=== PATIENT | female | born 1995 | race Caucasian/White ===

== ENCOUNTER 2020-02-15 02:54 | Observation (INO) ==
[2020-02-15] MEDS ORDERED: SODIUM CHLORIDE 0.9% 1000ML 1,000 ML IV ONE (03:12)
[2020-02-15] MEDS ORDERED: ACETAMINOPHEN 1,000 MG/100 ML VIAL IV STA (03:12)
[2020-02-15] MEDS ORDERED: ONDANSETRON INJ 2 MG/ML 2 ML VIAL IV STA (03:14)
--- NOTE | 2020-02-15 03:17 | Emergency Department Note ---
History of Present Illness General Chief complaint: Headache Stated complaint: nausea/vomiting/headache/altered mental status Time Seen by Provider: 02/15/20 03:12 Source: EMS Mode of arrival: EMS Limitations: altered mental status History of Present Illness Provider complaint: Altered mental status, headache, possible migraine Onset (ago): unknown This is a 24-year-old female brought him by EMS for altered mental status, nausea and vomiting, and possible migraine. EMS reported to ER staff that boyfriend awoke to patient screaming intermittently, and could not get her to calm down or answer questions. Boyfriend called the patient's mom who states that she gets migraine headaches, and 1-2 times a year when she gets a bad migraine she will have similar symptoms. Boyfriend became concerned and called EMS. Patient here is intermittently yelling, would not cooperate to perform an exam and will not answer any questions. EMS reported boyfriend is in route to the emergency room as well, however he is not yet present. Pt seen during a time of high acuity and national emergency pandemic while wearing PPE. Home Medications Home Medications Medication Instructions Recorded Confirmed Type norgestimate-ethinyl estradiol 1 tab PO DAILY 02/15/20 02/15/20 History [Sioux-[place]] sertraline 25 mg PO DAILY 02/15/20 02/15/20 History Allergies Allergy/AdvReac Type Severity Reaction Status Date / Time No Known Allergies Allergy Unverified 02/15/20 03:19 Past Med/Surg History Medical History (Updated 02/16/20 @ 04:44 by Marcella Durham DO) Atypical migraine Depression Seizure disorder Family History (Updated 02/15/20 @ 23:19 by Bruno Miner DO) Other Family history non-contributory Social History Smoking Status: Current every day smoker Tobacco Type: E-cigarettes / Vaping Hx Alcohol Use: Yes Preferred Language: Kiswahili Communication Ability: Unable Communication Ability Comment: pt is sedated at this time. Endorsement Clerk Required: No Beliefs That Will Affect Care: None Current Living Situation: Other Current Living Situation Comment: was staying at her boyfriend's house Other Information That Helps Us Care for You: No Feels Safe at Home: Yes Safety Concerns: Feels Safe At This Time Assistive Devices: None Review of Systems See HPI for pertinent positives & negatives. and A total of 10 systems reviewed and were otherwise negative Physical Exam Vital Signs Vital Signs - 24 hr 02/15/20 05:56 02/15/20 06:34 Pulse Rate [Left Finger] 111 H 106 H Respiratory Rate 16 16 Respiratory Effort / Characteristics Non-Labored Spontaneous Non-Labored Spontaneous Respiratory Depth Normal Respiratory Pattern Regular Regular Blood Pressure [Left Arm] 129/109 H 116/82 Blood Pressure Mean [Left Arm] 115 93 Blood Pressure Position [Left Arm] Lying Lying Pulse Oximetry 98 100 Oxygen Delivery Method Room Air Room Air GENERAL: Eyes closed, patient intermittently flailing, intermittently screaming EYE EXAM: normal conjunctiva, PERRL and EOM's grossly intact OROPHARYNX: no exudate, no erythema, lips, buccal mucosa, and tongue normal and mucous membranes are moist NECK: supple, no nuchal rigidity, no adenopathy, non-tender LUNGS: Clear to auscultation. Normal chest wall mechanics, no w/r/r HEART: no murmurs, S1 normal and S2 normal ABDOMEN: abdomen soft, non-tender, normo-active bowel sounds, no masses, no rebound or guarding. BACK: Back is symmetrical on inspection and there is no deformity, no midline tenderness, no CVA tenderness. SKIN: no rashes and no bruising UPPER EXTREMITIES: upper extremities are grossly normal. FROM, nml pulses b/l. LOWER EXTREMITIES: No pitting edema. FROM, nml pulses b/l. NEURO EXAM: Intermittently screaming, will not answer questions, moving all 4 extremities spontaneously, would not perform any other purposeful movements to command Course Course 0326: Boyfriend now at bedside. He states she does have a history of migraines and gets headaches frequently. He states in the evening prior to bedtime she complained of an evolving headache and slight nausea. She went to bed and when she awoke later she seemed to be in distress, got up and went to the bathroom because she was feeling nauseous, and complained that her headache was w orsening. She did not take any medication at that time but tried to lay back down. He states over the next 30 to 45 minutes, she seemed to be becoming incoherent, seem to be more agitated. He states mom did tell him that this happens once or twice a year including the accompanying confusion. He denies that she has been sick recently or had any fevers. He states he does not know what medication she is supposed to take for her migraines but did ask the mom for a list. He denies any recent trauma or injury. Denies any other ongoing medical problems. He does states she has a history of mental health, specifically anxiety, and does take medications for this. He states she has not otherwise had any recent illness, fevers or chills. Has not been tested for coronavirus. He says patient does work as an [employer] in [place]. 0435: Pt still with intermittent screaming. Given ativan to help get labs and CT. 0552: Pt less agitated compared to prior. Still moans with any stimulation such as taking vital signs. 0652: Patient's mother now at bedside. Discussed story with her and she c onfirms that she has these episodes about once a year. States she had epilepsy as a child, although states the neurologist have told her that her epilepsy is not related to her current migraines but she does not believe them. Mother states she does have medication she supposed to take as soon as she feels a migraine coming on but is unsure if she does so and does not remember the name of this. Mother states whenever she gets 1 of these episodes they simply take her to the emergency room. Patient states she does still periodically see neurology down at [facility]. Mother states she has previously been admitted for these episodes in the past. 0735: Discussed with Dr. Miner, [facility] hospitalist service. Administered Medications Acetaminophen (Acetaminophen 325 Mg Tab) 650 mg PO Q4H PRN PRN Reason: pain/fever Stop: 03/16/20 09:58 Last Admin: 02/15/20 18:43 Dose: 650 mg Documented by: [id number] Sodium Chloride (Nss 1000ml) 1,000 mls @ 80 mls/hr IV .[id number] MYRNA Stop: 03/16/20 16:59 Last Admin: 02/15/20 17:18 Dose: 80 mls/hr Documented by: [id number] Miscellaneous (*[place]*Order Awaiting Action) 1 ea N/A QS MYRNA Stop: 03/16/20 10:29 Last Admin: 02/15/20 23:26 Dose: Not Given Documented by: [id number] Admin: 02/15/20 16:39 Dose: Not Given Documented by: [id number] Admin: 02/15/20 13:35 Dose: Not Given Documented by: [id number] Sertraline HCl (Sertraline Hcl 50 Mg Tablet) 25 mg PO DAILY MYRNA Stop: 03/16/20 09:58 Last Admin: 02/15/20 13:35 Dose: Not Given Documented by: [id number] Discontinued Medications Diphenhydramine HCl (Diphenhydramine 50 Mg/Ml Vial) 12.5 mg IV NOW STA Stop: 02/15/20 05:14 Last Admin: 02/15/20 05:23 Dose: 12.5 mg Documented by: [id number] Sodium Chloride (Nss 1000ml) 1,000 mls @ 999 mls/hr IV .[id number] ONE Stop: 02/15/20 04:12 Last Infusion: 02/15/20 04:33 Dose: 0 mls/hr Documented by: [id number] Admin: 02/15/20 03:29 Dose: 999 mls/hr Documented by: [id number] Acetaminophen (Ofirmev) 1,000 mg in 100 mls @ 400 mls/hr IV NOW STA Stop: 02/15/20 03:26 Last Infusion: 02/15/20 03:45 Dose: 0 mls/hr Documented by: [id number] Admin: 02/15/20 03:30 Dose: 400 mls/hr Documented by: [id number] Lorazepam (Ativan) 1 mg in 2 mls @ 2 mls/min IV NOW STA Stop: 02/15/20 03:32 Last Admin: 02/15/20 03:38 Dose: 2 mls/min Documented by: [id number] Lorazepam (Ativan) 1 mg in 2 mls @ 2 mls/min IV NOW STA Stop: 02/15/20 04:46 Last Admin: 02/15/20 05:05 Dose: 2 mls/min Documented by: [id number] Prochlorperazine (Compazine) 1 mls @ 1 mls/min IV ONE ONE Stop: 02/15/20 05:14 Last Admin: 02/15/20 05:23 Dose: 1 mls/min Documented by: [id number] Ioversol (Optiray 320 125ml) 125 ml IV ONCE ONE Stop: 02/15/20 05:24 Last Admin: 02/15/20 05:24 Dose: 119 ml Documented by: [id number] Ketorolac Tromethamine (Ketorolac Tromethamine 15 Mg/Ml Vial) 10 mg IV NOW ONE Stop: 02/15/20 05:38 Last Admin: 02/15/20 05:50 Dose: 10 mg Documented by: [id number] Ondansetron HCl (Ondansetron Inj 2 Mg/Ml 2 Ml Vial) 4 mg IV NOW STA Stop: 02/15/20 03:15 Last Admin: 02/15/20 03:29 Dose: 4 mg Documented by: [id number] Medical Decision Making Differential Diagnosis Differential diagnoses includes but is not limited to toxic, metabolic, infectious, traumatic, cardiac, neurologic, hematologic, psychiatric and inflammatory etiologies. Medical Records Attestation: I reviewed the patient's medical records. Home Medications Current Medication List: was personally reviewed by me Laboratory Data Attestation: I reviewed the patient's lab results. Result diagrams: 02/15/20 03:20 02/15/20 03:20 Lab Results 02/15/20 02/15/20 02/15/20 Range/Units 03:20 03:20 03:20 WBC 10.45 (4.8-10.8) K/uL RBC 4.14 L (4.2-5.4) M/uL Hgb 12.4 (12.0-16.0) g/dL Hct 36.5 L (37-47) % MCV 88.2 (80-100) fL MCH 30.0 (25-34) pg MCHC 34.0 (32-36) g/dL RDW Std Deviation 40.0 (36.4-46.3) fL RDW Coeff of Neelima 12.3 (11.5-14.5) % Plt Count 181 (130-400) K/uL MPV 9.7 (7.4-10.4) fL Immature Gran % (Auto) 0.2 % Neut % (Auto) 81.0 % Lymph % (Auto) 12.7 % [place]oux % (Auto) 5.5 % Eos % (Auto) 0.4 % Baso % (Auto) 0.2 % Neut # (Auto) 8.47 H (1.4-6.5) K/uL Lymph # (Auto) 1.33 (1.2-3.4) K/uL Sioux # (Auto) 0.57 (0.11-0.59) K/uL Eos # (Auto) 0.04 (0-0.5) K/uL Baso # (Auto) 0.02 (0-0.2) K/uL Immature Gran # (Auto) 0.02 (0.00-0.02) K/uL PT 11.4 (9.0-12.0) Seconds INR 1.1 (0.9-1.1) APTT 23.5 (21.0-31.0) Seconds PTT Ratio 0.8 Sodium 138 (136-145) mmol/L Potassium 3.4 L (3.5-5.1) mmol/L Chloride 107 (98-107) mmol/L Carbon Dioxide 22 (21-32) mmol/L Anion Gap 9.0 (3-11) BUN 9 (7-18) mg/dl Creatinine 0.87 (0.6-1.2) mg/dl Est Cr Clr Drug Dosing Not Reportable Est GFR ( Amer) 108.8 Est GFR (Non-Af Amer) 93.9 BUN/Creatinine Ratio 10.5 (10-20) Glucose 175 H (70-99) mg/dl Calcium 8.6 (8.5-10.1) mg/dl Magnesium 1.8 (1.8-2.4) mg/dl Total Bilirubin 0.5 (0.2-1) mg/dl AST 24 (15-37) U/L ALT 22 (12-78) U/L Alkaline Phosphatase 51 (45-117) U/L Troponin I < 0.015 (0-0.045) ng/ml Total Protein 7.9 (6.4-8.2) gm/dl Albumin 4.1 (3.4-5.0) gm/dl Globulin 3.8 (2.5-4.0) gm/dl Albumin/Globulin Ratio 1.1 (0.9-2) HCG, Qual (Negative) Urine Color Urine Appearance (Clear) Urine pH (4.5-7.5) Ur Specific Reg[place] (1.000-1.030) Urine Protein (Negative) Urine Glucose (UA) (Negative) Urine Ketones (Negative) Urine Blood (Negative) Urine Nitrite (Negative) Urine Bilirubin (Negative) Urine Urobilinogen (Negative) Ur Leukocyte Esterase (Negative) Urine WBC (Auto) (0-5) /hpf Urine RBC (Auto) (0-4) /hpf U Hyaline Cast (Auto) (0-5) /lpf U Epithel Cells (Auto) (0-5) /lpf Urine Bacteria (Auto) (Negative) Ur Renal Epithelial Cell Urine Mucus (None Prsent) Urine Opiates Screen (Neg) Ur Methadone, Qual (Neg) Urine Barbiturates (Neg) Ur Phencyclidine (PCP) (Neg) U Amphetamin/Meth Scrn (Neg) MDMA (Ecstasy) Screen (Neg) U Benzodiazepines Scrn (Neg) Ur Cocaine Metabolite (Neg) U Marijuana (THC) Screen (Neg) 02/15/20 02/15/20 02/15/20 Range/Units 03:20 05:10 05:10 WBC (4.8-10.8) K/uL RBC (4.2-5.4) M/uL Hgb (12.0-16.0) g/dL Hct (37-47) % MCV (80-100) fL MCH (25-34) pg MCHC (32-36) g/dL RDW Std Deviation (36.4-46.3) fL RDW Coeff of Neelima (11.5-14.5) % Plt Count (130-400) K/uL MPV (7.4-10.4) fL Immature Gran % (Auto) % Neut % (Auto) % Lymph % (Auto) % Si[place] % (Auto) % Eos % (Auto) % Baso % (Auto) % Neut # (Auto) (1.4-6.5) K/uL Lymph # (Auto) (1.2-3.4) K/uL [place] # (Auto) (0.11-0.59) K/uL Eos # (Auto) (0-0.5) K/uL Baso # (Auto) (0-0.2) K/uL Immature Gran # (Auto) (0.00-0.02) K/uL PT (9.0-12.0) Seconds INR (0.9-1.1) APTT (21.0-31.0) Seconds PTT Ratio Sodium (136-145) mmol/L Potassium (3.5-5.1) mmol/L Chloride (98-107) mmol/L Carbon Dioxide (21-32) mmol/L Anion Gap (3-11) BUN (7-18) mg/dl Creatinine (0.6-1.2) mg/dl Est Cr Clr Drug Dosing Est GFR ( Amer) Est GFR (Non-Af Amer) BUN/Creatinine Ratio (10-20) Glucose (70-99) mg/dl Calcium (8.5-10.1) mg/dl Magnesium (1.8-2.4) mg/dl Total Bilirubin (0.2-1) mg/dl AST (15-37) U/L ALT (12-78) U/L Alkaline Phosphatase (45-117) U/L Troponin I (0-0.045) ng/ml Total Protein (6.4-8.2) gm/dl Albumin (3.4-5.0) gm/dl Globulin (2.5-4.0) gm/dl Albumin/Globulin Ratio (0.9-2) HCG, Qual Negative (Negative) Urine Color Dark Yellow Urine Appearance Clear (Clear) Urine pH 6.5 (4.5-7.5) Ur Specific [place] 1.038 H (1.000-1.030) Urine Protein 1+ H (Negative) Urine Glucose (UA) Negative (Negative) Urine Ketones 3+ H (Negative) Urine Blood Negative (Negative) Urine Nitrite Negative (Negative) Urine Bilirubin Negative (Negative) Urine Urobilinogen Negative (Negative) Ur Leukocyte Esterase Negative (Negative) Urine WBC (Auto) 1-5 (0-5) /hpf Urine RBC (Auto) 0-4 (0-4) /hpf U Hyaline Cast (Auto) 0 (0-5) /lpf U Epithel Cells (Auto) >30 H (0-5) /lpf Urine Bacteria (Auto) Negative (Negative) Ur Renal Epithelial Cell Not Reportable Urine Mucus Present A (None Prsent) Urine Opiates Screen Neg (Neg) Ur Methadone, Qual Neg (Neg) Urine Barbiturates Neg (Neg) Ur Phencyclidine (PCP) Neg (Neg) U Amphetamin/Meth Scrn Neg (Neg) MDMA (Ecstasy) Screen Neg (Neg) U Benzodiazepines Scrn Neg (Neg) Ur Cocaine Metabolite Neg (Neg) U Marijuana (THC) Screen Neg (Neg) Imaging Data Radiologist's Impression: CT head: Impression: Negative exam. Radiologist: Lenard Bañuelos MD CTA head: No evidence of aneurysm, stenosis or major intracranial branch occlusion. Major intracranial venous structures enhance normally. Radiologist: Lenard Bañuelos MD CTA neck: Impression: Negative exam. Radiologist: Lenard Bañuelos MD ECG Data Attestation: I personally reviewed and interpreted this ECG as follows: Indication: + altered mental status Rate (beats per minute): 112 Rhythm: + sinus tachycardia ECG Intervals/blocks: + Normal QRS and + Normal QT ECG [place]: + Normal ECG ST segments: + Normal ST segments Blood Pressure Blood Pressure Findings: Normal blood pressure MDM Narrative This is a 24-year-old female who presents the emergency department with altered mental status and agitation. Per the boyfriend and the patient's mom this is consistent with prior episodes of complex migraines. Due to abnormal presentation despite the history, labs are drawn and sent and patient sent for CT imaging to rule out other pathology. These were all reassuring. Patient was afebrile and hemodynamically stable otherwise. Patient given additional medications for migraines however did not show significant improvement. Case discussed with hospitalist for additional evaluation. At the time of our discussion, I do not suspect ICH, SAH, CVA, dissection, venous sinus thrombus, meningitis/encephalitis, toxicologic syndrome, intoxication, or drug use. An order was placed for continuous cardiac monitoring. The monitor shows a rate of _87_ with _normal sinus__ rhythm. Impression & Plan Headache, Acute alteration in mental status Discharge Plan Visit Data Chief Complaint: Headache Stated Complaint: nausea/vomiting/headache/altered mental status ED Provider: Marcella Durham Discharge Problem: Headache, Acute alteration in mental status Patient Disposition: Admitted As Inpatient Discharge Instructions Interventions: ED Discharge Assessment Last Done: 02/15/20 09:45 Discharge Problem: Headache Qualifiers: Headache type: unspecified Headache chronicity pattern: acute headache Intractability: not intractable Qualified Code(s): R51.9 - Headache, unspecified
[2020-02-15] MEDS ORDERED: LORazepam 1 MG/2 ML VIAL IV STA ×2 (03:31→04:45)
[2020-02-15 03:46] LABS: Basophils # (auto) 0.02 K/uL (0-0.2); Basophils % (auto) 0.2 %; Eosinophils # (auto) 0.04 K/uL (0-0.5); Eosinophils % (auto) 0.4 %; Hematocrit (blood only) 36.5 % (37-47); Hemoglobin 12.4 g/dL (12.0-16.0); Immature Granulocytes # (auto) 0.02 K/uL (0.00-0.02); Immature Granulocytes % (auto) 0.2 %; Lymphocytes # (auto) 1.33 K/uL (1.2-3.4); Lymphocytes % (auto) 12.7 %; Mean Corpuscular Volume 88.2 fL (80-100); Mean Platelet Volume 9.7 fL (7.4-10.4); Monocytes # (auto) 0.57 K/uL (0.11-0.59); Monocytes % (auto) 5.5 %; Neutrophils # (auto) 8.47 K/uL (1.4-6.5); Platelet Count 181 K/uL (130-400); RDW Coefficient of Variation 12.3 % (11.5-14.5); Red Blood Count 4.14 M/uL (4.2-5.4); White Blood Count 10.45 K/uL (4.8-10.8)
[2020-02-15 04:03] LABS: Alanine Aminotransferase 22 U/L (12-78); Albumin Level 4.1 gm/dl (3.4-5.0); Aspartate Aminotransferase 24 U/L (15-37); BUN Creatinine Ratio 10.5 (10-20); Blood Urea Nitrogen 9 mg/dl (7-18); Calcium 8.6 mg/dl (8.5-10.1); Carbon Dioxide 22 mmol/L (21-32); Chloride 107 mmol/L (98-107); Est GFR (African American) 108.8; Est GFR (Non-African American) 93.9; Glucose 175 mg/dl (70-99); Magnesium 1.8 mg/dl (1.8-2.4); Potassium 3.4 mmol/L (3.5-5.1); Sodium 138 mmol/L (136-145)
[2020-02-15 04:06] LABS: INR 1.1 (0.9-1.1); Partial Thromboplastin Ratio 0.8; Partial Thromboplastin Time 23.5 Seconds (21.0-31.0); Prothrombin Time 11.4 Seconds (9.0-12.0)
[2020-02-15 04:08] LABS: Albumin Globulin Ratio 1.1 (0.9-2); Alkaline Phosphatase 51 U/L (45-117); Bilirubin,Total 0.5 mg/dl (0.2-1); Globulin 3.8 gm/dl (2.5-4.0); Total Protein 7.9 gm/dl (6.4-8.2); Troponin I < 0.015 ng/ml (0-0.045)
[2020-02-15 04:21] LABS: Pregnancy Test, Serum Negative (Negative)
[2020-02-15] MEDS ORDERED: PROCHLORPERAZINE 1 ML IV ONE (05:13)
[2020-02-15] MEDS ORDERED: diphenhydrAMINE 50 MG/ML VIAL IV STA (05:13)
[2020-02-15] MEDS ORDERED: OPTIRAY 320 125ml IV ONE (05:23)
[2020-02-15 05:27] LABS: Appearance Urine Clear (Clear); Bacteria Urine Automated Negative (Negative); Bilirubin Urine Negative (Negative); Blood Urine Negative (Negative); Color Urine Dark Yellow; Epithelial Cell Urine Auto >30 /lpf (0-5); Glucose Urine UA Negative (Negative); Ketones Urine 3+ (Negative); Leukocyte Esterase Urine Negative (Negative); Nitrite Urine Negative (Negative); Protein Urine 1+ (Negative); RBC Urine Automated 0-4 /hpf (0-4); Specific Gravity Urine 1.038 (1.000-1.030); Urobilinogen Urine Negative (Negative); pH Urine 6.5 (4.5-7.5)
[2020-02-15] MEDS ORDERED: KETOROLAC TROMETHAMINE 15 MG/ML VIAL IV ONE (05:37)
[2020-02-15 05:52] LABS: Cast Urine Automated 0 /lpf (0-5); Mucus Urine Present (None Prsent)
[2020-02-15 06:22] LABS: Amphetamines+Metham, Urine Neg (Neg); Barbiturates, Urine Neg (Neg); Benzodiazepine, Urine Neg (Neg); Cocaine, Urine Neg (Neg); MDMA (Ecstacy), Urine Neg (Neg); Methadone, Urine Neg (Neg); Opiate, Urine Neg (Neg); Phencyclidine, Urine Neg (Neg)
--- NOTE | 2020-02-15 06:55 | CT Scan Report ---
CT head/brain wo con CLINICAL HISTORY: 24 years-old Female with Stroke evaluation . Acutely altered mental status TECHNIQUE: Multiple axial CT images of the head were obtained without contrast. A dose lowering tech nique was utilized adhering to the principles of ALARA. COMPARISON: CTA had and neck of same day FINDINGS: No acute intracranial hemorrhage, midline shift, intracranial mass, hydrocephalus, territorial ischem ia or abnormal extra-axial collection. The calvarium is intact. The paranasal sinuses, mastoid air cells, and middle ear cavities are clear . IMPRESSION: No acute intracranial abnormality. ACT 112: Negative or not required by law. The above report was generated using voice recognition software. It may contain grammatical, syntax o r spelling errors. Electronically signed by: Hansel Ferreira M.D. 02/15/2020 6:53 AM
--- NOTE | 2020-02-15 07:21 | CT Scan Report ---
CT ANGIOGRAM OF THE BRAIN; CT ANGIOGRAM OF THE NECK CLINICAL HISTORY: Headache. COMPARISON STUDY: Unenhanced CT of the brain performed concurrently on 02/15/2020. TECHNIQUE: Following the IV administration of 119 of Optiray 320, CT angiogram of the head and neck w as performed from the aortic arch to the vertex. Images are reviewed in the axial, sagittal, and lin nal planes. 3-D MIPS images are created and assessed. IV contrast was administered without complicati on. All measurements were calculated based on NASCET criteria. A dose lowering technique was utilize d adhering to the principles of ALARA. CT DOSE: 1243.63 mGy.cm FINDINGS: Brain parenchyma: The brain parenchyma is normal in appearance. There is no hemorrhage, mass effect, or evidence of acute territorial ischemia by CT criteria. There is no evidence of enhancing mass lesi on on the angiogram phase images. The ventricles, sulci, and cisterns are normal in configuration. Gr ay-white matter differentiation is preserved. No extra-axial fluid collection is seen. Thoracic aorta: Visualized portions of the thoracic aorta are normal in caliber. The aortic arch demo nstrates 4-vessel variant anatomy. The left vertebral artery arises directly from the aortic arch. Right carotid arterial system: The right common carotid artery is widely patent, as are the right int ernal and external carotid arteries. Left carotid arterial system: The left common carotid artery is widely patent, as are the left production intern al and external carotid arteries. Vertebral arteries: The vertebral arteries are widely patent bilaterally noting mild right-sided arnaldo nance. Subclavian arteries: Widely patent bilaterally. Intracranial vasculature: There is a right posterior communicating artery. The internal carotid arter ies are patent at the skull base, as are the anterior and middle cerebral arteries bilaterally. The v ertebrobasilar system and posterior cerebral arteries are widely patent. The right vertebral artery i s dominant. There is no aneurysm, high-grade stenosis, or focal vessel cut off seen throughout the in tracranial circulation. Jugular veins: Patent bilaterally. Dural sinuses: Patent. Lung apices: Partially visualized upper lobe lung parenchyma appears clear. Soft tissues: The visualized pharyngeal soft tissues are normal in appearance noting angiographic pha se technique. The oropharyngeal airway appears widely patent. The salivary and thyroid glands are nor mal in appearance. No cervical lymphadenopathy is seen. Skeletal structures: The calvarium appears intact. The cervical spine is within normal limits. Sinuses and mastoids: The paranasal sinuses are clear. The mastoid air cells are well pneumatized. IMPRESSION: 1. There is no hemorrhage, mass effect, or evidence of acute territorial ischemia by CT criteria noti ng angiographic phase technique. 2. Unremarkable CT angiogram of the brain. 3. Unremarkable CT angiogram of the neck. ACT 112: Negative or not required by law. Electronically signed by: Jonathan Rothman M.D. 02/15/2020 7:19 AM
--- NOTE | 2020-02-15 07:41 | History & Physical Report ---
Date of Service February 15, 2020 Assessment & Plan (1) Atypical migraine: no history from patient due to lethargy per her mom, she thinks she gets a migraine once a month but she is not sure she gets a severe migraine that puts her in the hospital once a year she says this is typical of her prior presentations where the headache is treated in the ED and the patient will sleep for 12-24 hours in the ED she got Benadryl, Compazine and Ativan 1mg IV x 2 doses she has continued to sleep all day CT and CTA head and neck were normal no signs of infection, negative urine tox screen will provide NSS at 80cc/hr, allow her to rest re-evaluate in the morning her mother says she typically goes home the next day (2) Headache: History of Present Illness Chief Complaint: patient complained of headache Primary Care Provider: NO PCP 24 yo female with history of migraine headaches as well as remote history of seizures as a child presented to the ED this morning due to having a headache but also showing signs of encephalopathy. All history obtained from the ED physician and then her mother at the bedside. Patient lives in [facility] and was visiting her boyfriend who lives in [place]. She was complaining of headache yesterday and last evening. She gets migraine headaches, her mom says maybe one a month. She does not take any prophylactic medications, only as needed medications and her mother is not sure what she is prescribed or even if it is prescription medication. 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 Since she had a headache she went to bed early last night to try to sleep off the headache. Her boyfriend noticed when he woke her in the middle of the night that she was acting odd, not speaking clearly, seemed disoriented and he became worried. He brought her to the ED for evaluation. He said that other than the headache she did not have other complaints the prior day. Later her mother provided more history, stated that the patient gets one severe migraine a year that requires hospitalization, typically she gets medications in the ED and then sleeps for 12-24 hours and feels better when she wakes up. She confirmed that this is typical for that presentation. In the ED CT head and CTA head and neck were normal. CBC and BMP normal. UA clean, urine tox negative. Her medications only include control and Zoloft. In the ED she received Bendadryl, Compazine and two doses of Ativan 1mg IV because she was moving all around the bed, uncooperative. At the time of my evaluations she was lethargic and minimally responsive due to medications. Allergies Allergy/AdvReac Type Severity Reaction Status Date / Time No Known Allergies Allergy Unverified 02/15/20 03:19 Home Medications Home Medications Medication Instructions Recorded Confirmed Type norgestimate-ethinyl estradiol 1 tab PO DAILY 02/15/20 02/15/20 History [[place]] sertraline 25 mg PO DAILY 02/15/20 02/15/20 History Past Med/Surg History Medical History (Updated 02/15/20 @ 23:18 by Bruno Miner DO) Atypical migraine Depression Seizure disorder Family History (Updated 02/15/20 @ 23:19 by Bruno Miner DO) Other Family history non-contributory Social History Smoking Status: Current every day smoker Tobacco Type: E-cigarettes / Vaping Hx Alcohol Use: Yes Preferred Language: Chinese Communication Ability: Unable Communication Ability Comment: pt is sedated at this time. Wellness Coach Required: No Beliefs That Will Affect Care: None Current Living Situation: Other Current Living Situation Comment: was staying at her boyfriend's house Other Information That Helps Us Care for You: No Feels Safe at Home: Yes Safety Concerns: Feels Safe At This Time Assistive Devices: None Review of Systems Review of Systems: Unobtainable due to reduced consciousness Physical Exam Constitutional: well developed, well nourished, comfortable and + lethargic; no acute distress Eyes: PERRL, conjunctivae normal, anicteric sclerae ENMT: external ear and nose normal, oropharynx normal Neck: trachea midline, no thyromegaly Respiratory: normal respiratory effort, lungs clear to auscultation Cardiovascular: RRR, no murmur, no edema Gastrointestinal (Abdomen): normal bowel sounds, soft, nontender, no hepatosplenomegaly Musculoskeletal: Head/Neck/Chest: normocephalic, head atraumatic and neck supple Extremities: extremities normal to inspection; no cyanosis, no clubb ing and no petechiae Skin: no rashes, warm and dry Neurologic: moves all extremities and + obtunded; no focal motor deficits Lymphatic: no cervical or axillary lymphadenopathy Results & Data Results & Data ([facility]) Vital Signs (Past 12 Hours) Vital Signs Temp Pulse Pulse Resp BP BP Pulse Ox 02/15/20 06:34 106 H 16 116/82 100 02/15/20 05:56 111 H 16 129/109 H 98 02/15/20 04:34 106 H 16 100 02/15/20 03:09 36.7 C 92 H 20 92/80 L 98 Laboratory Results Laboratory Results - last 24 hr 02/15/20 02/15/20 02/15/20 03:20 03:20 03:20 WBC 10.45 RBC 4.14 L Hgb 12.4 Hct 36.5 L MCV 88.2 MCH 30.0 MCHC 34.0 RDW Std Deviation 40.0 RDW Coeff of Neelima 12.3 Plt Count 181 MPV 9.7 Immature Gran % (Auto) 0.2 Neut % (Auto) 81.0 Lymph % (Auto) 12.7 [place] % (Auto) 5.5 Eos % (Auto) 0.4 Baso % (Auto) 0.2 Neut # (Auto) 8.47 H Lymph # (Auto) 1.33 [place] # (Auto) 0.57 Eos # (Auto) 0.04 Baso # (Auto) 0.02 Immature Gran # (Auto) 0.02 PT 11.4 INR 1.1 APTT 23.5 PTT Ratio 0.8 Sodium 138 Potassium 3.4 L Chloride 107 Carbon Dioxide 22 Anion Gap 9.0 BUN 9 Creatinine 0.87 Est Cr Clr Drug Dosing Not Reportable Est GFR ( Amer) 108.8 Est GFR (Non-Af Amer) 93.9 BUN/Creatinine Ratio 10.5 Glucose 175 H Calcium 8.6 Magnesium 1.8 Total Bilirubin 0.5 AST 24 ALT 22 Alkaline Phosphatase 51 Troponin I < 0.015 Total Protein 7.9 Albumin 4.1 Globulin 3.8 Albumin/Globulin Ratio 1.1 HCG, Qual Urine Color Urine Appearance Urine pH Ur Specific [place] Urine Protein Urine Glucose (UA) Urine Ketones Urine Blood Urine Nitrite Urine Bilirubin Urine Urobilinogen Ur Leukocyte Esterase Urine WBC (Auto) Urine RBC (Auto) U Hyaline Cast (Auto) U Epithel Cells (Auto) Urine Bacteria (Auto) Ur Renal Epithelial Cell Urine Mucus Urine Opiates Screen Ur Methadone, Qual Urine Barbiturates Ur Phencyclidine (PCP) U Amphetamin/Meth Scrn MDMA (Ecstasy) Screen U Benzodiazepines Scrn Ur Cocaine Metabolite U Marijuana (THC) Screen 02/15/20 02/15/20 02/15/20 03:20 05:10 05:10 WBC RBC Hgb Hct MCV MCH MCHC RDW Std Deviation RDW Coeff of [place]ima Plt Count MPV Immature Gran % (Auto) Neut % (Auto) Lymph % (Auto) [place] % (Auto) Eos % (Auto) Baso % (Auto) Neut # (Auto) Lymph # (Auto) [place] # (Auto) Eos # (Auto) Baso # (Auto) Immature Gran # (Auto) PT INR APTT PTT Ratio Sodium Potassium Chloride Carbon Dioxide Anion Gap BUN Creatinine Est Cr Clr Drug Dosing Est GFR ( Amer) Est GFR (Non-Af Amer) BUN/Creatinine Ratio Glucose Calcium Magnesium Total Bilirubin AST ALT Alkaline Phosphatase Troponin I Total Protein Albumin Globulin Albumin/Globulin Ratio HCG, Qual Negative Urine Color Dark Yellow Urine Appearance Clear Urine pH 6.5 Ur Specific [place] 1.038 H Urine Protein 1+ H Urine Glucose (UA) Negative Urine Ketones 3+ H Urine Blood Negative Urine Nitrite Negative Urine Bilirubin Negative Urine Urobilinogen Negative Ur Leukocyte Esterase Negative Urine WBC (Auto) 1-5 Urine RBC (Auto) 0-4 U Hyaline Cast (Auto) 0 U Epithel Cells (Auto) >30 H Urine Bacteria (Auto) Negative Ur Renal Epithelial Cell Not Reportable Urine Mucus Present A Urine Opiates Screen Neg Ur Methadone, Qual Neg Urine Barbiturates Neg Ur Phencyclidine (PCP) Neg U Amphetamin/Meth Scrn Neg MDMA (Ecstasy) Screen Neg U Benzodiazepines Scrn Neg Ur Cocaine Metabolite Neg U Marijuana (THC) Screen Neg Diagnostic Findings CT HEAD AND CTA HEAD/NECK: unremarkable Code Status & VTE Plan VTE Prophylaxis Plan VTE Prophylaxis will be ordered: No PG Care Time/CCT Total # of Minutes Spent Total Time Spent with Patient: Total time spent is greater than 50% in coordination of care (as documented) at patient's floor/unit and/or counseling patient: Coding Level of Care Code 39701 OBS Care - Level 2 Diagnoses Atypical migraine G43.009 Headache R51.9 Headache chronicity pattern: acute headache Headache type: unspecified Intractability: not intractable (1) Headache Headache chronicity pattern: acute headache Headache type: unspecified Intractability: not intractable Qualified Code(s): R51.9 - Headache, unspecified
[2020-02-15] MEDS ORDERED: ONDANSETRON INJ 2 MG/ML 2 ML VIAL IV PRN (09:59)
[2020-02-15 12:01] LABS: Estimated Average Glucose 108 mg/dl; Hemoglobin A1C 5.4 % (4.5-5.6)
[2020-02-15] MEDS: SERTRALINE HCL 50 MG TABLET PO SCH (13:35)
[2020-02-15] MEDS: SODIUM CHLORIDE 0.9% 1000ML 1,000 ML IV SCH (17:18)
[2020-02-15] MEDS: ACETAMINOPHEN 325 MG TAB PO PRN (18:43)
[2020-02-16] MEDS: SODIUM CHLORIDE 0.9% 1000ML 1,000 ML IV SCH (05:25)
[2020-02-16] MEDS: ACETAMINOPHEN 325 MG TAB PO PRN (05:31)
[2020-02-16] MEDS: SERTRALINE HCL 50 MG TABLET PO SCH (08:46)
--- NOTE | 2020-02-16 10:21 | Electrocardiogram Report ---
Test Reason : Blood Pressure : / mmHG Vent. Rate : 112 BPM Atrial Rate : 112 BPM P-R Int : 112 ms QRS Dur : 096 ms QT Int : 324 ms P-R-T Axes : 086 077 071 degrees QTc Int : 442 ms Sinus tachycardia Possible Lateral infarct , age undetermined Abnormal ECG No previous ECGs available Confirmed by Wagner Nicholson ([id number]) on 02/16/2020 10:21:05 AM Referred By: REFERRED SELF Confirmed By:Wagner Nicholson
--- NOTE | 2020-02-18 14:57 | Discharge Summary ---
Date of Service February 16, 2020 Admission HPI Per Admitting Provider 24 yo female with history of migraine headaches as well as remote history of seizures as a child presented to the ED this morning due to having a headache but also showing signs of encephalopathy. All history obtained from the ED physician and then her mother at the bedside. Patient lives in [facility] and was visiting her boyfriend who lives in [place]. She was complaining of headache yesterday and last evening. She gets migraine headaches, her mom says maybe one a month. She does not take any prophylactic medications, only as needed medications and her mother is not sure what she is prescribed or even if it is prescription medication. 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 Since she had a headache she went to bed early last night to try to sleep off the headache. Her boyfriend noticed when he woke her in the middle of the night that she was acting odd, not speaking clearly, seemed disoriented and he became worried. He brought her to the ED for evaluation. He said that other than the headache she did not have other complaints the prior day. Later her mother provided more history, stated that the patient gets one severe migraine a year that requires hospitalization, typically she gets medications in the ED and then sleeps for 12-24 hours and feels better when she wakes up. She confirmed that this is typical for that presentation. In the ED CT head and CTA head and neck were normal. CBC and BMP normal. UA clean, urine tox negative. Her medications only include control and Zoloft. In the ED she received Bendadryl, Compazine and two doses of Ativan 1mg IV because she was moving all around the bed, uncooperative. At the time of my evaluations she was lethargic and minimally responsive due to medications. Principal Diagnosis complex migraine Discharge Exam Constitutional well developed, well nourished and comfortable; no acute distress Eyes PERRL, conjunctivae normal, anicteric sclerae ENMT external ear and nose normal, oropharynx normal Neck trachea midline, no thyromegaly Respiratory normal respiratory effort, lungs clear to auscultation Cardiovascular RRR, no murmur, no edema Gastrointestinal (Abdomen) normal bowel sounds, soft, nontender, no hepatosplenomegaly Musculoskeletal Head/Neck/Chest: normocephalic, head atraumatic and neck supple Extremities: extremities normal to inspection; no cyanosis, no clubbing and no petechiae Skin no rashes, warm and dry Neurologic patellar DTR's 2+ bilat, sensation intact and PERRL, EOMI, accommodation nl, no face palsy, no dysarthria Psychiatric A+Ox3, euthymic affect Lymphatic no cervical or axillary lymphadenopathy Discharge Data Allergies Allergy/AdvReac Type Severity Reaction Status Date / Time No Known Allergies Allergy Unverified 02/15/20 03:19 Consultations 02/15/20 07:37 ED Decision to Admit Stat Ordered Studies 02/15/20 03:12 CT angio head w con Urgent CT angio neck with con Urgent CT head/brain wo con Urgent Hospital Course (1) Atypical migraine: no history from patient due to lethargy per her mom, she thinks she gets a migraine once a month but she is not sure she gets a severe migraine that puts her in the hospital once a year she says this is typical of her prior presentations where the headache is treated in the ED and the patient will sleep for 12-24 hours in the ED she got Benadryl, Compazine and Ativan 1mg IV x 2 doses she slept all day after being admitted CT and CTA head and neck were normal no signs of infection, negative urine tox screen patient awake and alert the day of discharge, no focal deficits, denied further headache she felt well enough to go home, no questions instructed her to seek neurology follow up if migraine headaches become more frequent (2) Headache: Total Time Total Time Spent Total Time Spent (In Minutes): 20 Total Time Includes: Examination of the Patient, Discharge Planning and Medication Reconciliation Discharge Plan Discharge Items Patient Disposition: Home - Self-Care Reason For Visit: COMPLEX MIGRAINE Discharge Diagnosis: Complex migraine Condition on Discharge: Good Activity: Resume your previous activity Non-emergency contact: Primary Care Provider Call non-emergency contact if: you have any medication questions Follow-up/Referrals: PCP,NO [Primary Care Provider] - (SPOKE WITH PATIENT, SHE WILL MAKE HER OWN F/U VISIT WITH PCP. SHE IS FROM [place] AND JUST VISITING A FRIEND IN THE AREA.) Diet: Regular Addtl Attending Provider Instructions: Medications: no changes Acute headache with subsequent change in mental status, possible complex migraine based on history of similar occurrences recommend that you follow up with a neurologist if this happens again in the near future otherwise no restrictions stay well nourished, well hydrated Pending Studies at Discharge: No Stand-Alone Forms: My [facility], Smoking Cessation Medications and DC Order Prescriptions: Continued norgestimate-ethinyl estradiol [[place]] 0.25-35 mg-mcg Tablet 1 tab PO DAILY RF: 0 sertraline 25 mg Tablet 25 mg PO DAILY RF: 0 Discharge Orders: Discharge Order (Routine); Ordered 02/16/20 Ordered By: Bruno Miner Admission Data Admit Date/Time: 02/15/20 07:39 Attending Provider: Bruno Miner Admit Provider: Bruno Miner Primary Care Provider: PCP,NO Other Providers: Bruno Miner Other Interventions: Discharge Summary Assessment (RN) Last Done: 02/16/20 10:05 Coding Level of Care Code 34677 OBS Care - Discharge Diagnoses Atypical migraine G43.009 Headache R51.9 Headache chronicity pattern: acute headache Headache type: unspecified Intractability: not intractable
== END 2020-02-16 10:52 | disposition home or self-care (01) ==
LOC: ED 02:54 → 3N 02:54